=== PATIENT | male | born 2005 | race Caucasian/White ===

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

== ENCOUNTER 2024-04-06 18:42 | Emergency (ER) | payer SELFPAY ==
[2024-04-06 18:43] VITALS: BP 119/48; PULSE 107; RESP 16; TEMP 36.9; O2SAT 98
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
[2024-04-06 19:53] LABS: Absolute Neutrophil Count 7.8 X10^3/uL (2.0-7.7); Basophil# 0.06 X10^3/uL; Basophil% 0.5 % (0-1); Eosinophil# 0.02 X10^3/uL; Eosinophils% 0.2 % (0-5); Hematocrit 45.8 % (40-54); Lymphocyte % 20.9 % (19-41); Mean Corp Hgb Conc 32.8 g/dL (32-36); Mean Corpuscular Hgb 30.7 pg (27.0-32.0); Mean Corpuscular Volume 93.7 fL (80-94); Mean Platelet Vol. 10.8 fl (6.2-12.0); Monocyte% 6.4 % (0-10); NRBC Flagged by Analyzer 0 % (0-5); Neutrophil # 7.83 X10^3/uL (2.7-7.7); Neutrophil % 71.3 % (47-70); Platelet Count 268 K/mm3 (150-450); RBC Distribution Width CV 12.4 % (11.6-14.6); RBC Distribution Width SD 42.6 fl (35.1-43.9); Red Blood Count 4.89 M/mm3 (4.6-6.2)
--- NOTE | 2024-04-06 19:58 | ED.RN ---
called pharmacy to inquire about yunier
[2024-04-06 20:15] LABS: Anion Gap 13 (5-15); BUN 10 mg/dL (7-18); BUN/Creat Ratio 10.8 RATIO (10-20); Calcium,Total 9.4 mg/dL (8.5-10.1); Chloride 104 mmol/L (98-107); Creatinine, Serum 0.92 mg/dL (0.70-1.30); EST Glomerular Filtration Rate 111 mL/min (>60); Est Glom Filt Rate - Afr Amer 134 mL/min (>60); Glucose 115 mg/dL (74-106); Potassium 3.9 mmol/L (3.5-5.1); Sodium Level 140 mmol/L (136-145)
[2024-04-06 20:17] LABS: Valproic Acid (Depakene) Level 110 ug/mL (50-100)
[2024-04-06] MEDS: Divalproex Sodium 250 MG Tablet 500 MG PO (20:17)
[2024-04-06 20:42] VITALS: BP 109/61; PULSE 74; RESP 18; O2SAT 98
--- NOTE | 2024-04-06 20:53 | EDS_ITS ---
HPI History of Present Illness Chief Complaint: Seizure Informant: patient, parent and EMS Narrative Narrative: 18-year-old male with a history of epilepsy presenting to the emergency room with 2 seizures today. Patient notes that he is epileptic and takes valproic acid. He sees neurology through [facility] and sees them in [place]. He admits that he often misses doses of his Depakote. Denies any recent illnesses. Reportedly had a seizure today but does not remember how he would have injured himself but he notes contusion to his tongue and left periorbital contusion. He notes associated headache. Mom found him into her to family to watch him while she finished work. He took a nap. He notes that he felt back to normal shortly after waking up from nap had a another generalized seizure. [facility] Medical History Seizure Home Medications ?Medication ?Instructions ?Recorded ?Last Taken ?Type amoxicillin 875 mg tablet 875 mg PO BID #20 tabs 10/01/15 Unknown Rx divalproex 500 mg tablet,delayed 500 mg PO BID 12/30/21 Unknown History release divalproex 125 mg tablet,delayed 500 mg PO BID 01/10/22 Unknown History release (Depakote) Allergy/AdvReac Type Severity Reaction Status Date / Time No Known Allergies Allergy Verified 04/06/24 18:53 Social History Smoking Status: Current some day smoker tobacco type: cigarettes, e-cigarettes and smokeless tobacco ROS ROS ED Constitutional Constitutional ED: Denies chills, fever(s) or weight loss Eyes Eyes: Denies change in vision or diplopia ENT ENT ED: Denies ear pain, rhinorrhea or sore throat Cardiovascular Cardiovascular: Denies chest pain, orthopnea, palpitations or racing heartbeat Respiratory/Chest Respiratory/Chest: Denies cough, dyspnea or orthopnea Gastrointestinal Gastrointestinal: Denies abdominal pain, diarrhea, nausea or vomiting Genitourinary Genitourinary ED: Denies dysuria, hematuria or urinary frequency Musculoskeletal Musculoskeletal: Reports other Details: Left periorbital contusion ; Denies arthralgias or myalgias Integumentary Denies abscess or rash Neurologic Neurologic: Reports headache(s) and other Details: Seizure ; Denies paresthesias or weakness Psychiatric Psychiatric: Denies anxiety, depression, suicidal ideation or suicidal thoughts Endocrine Endocrinology: Denies polydipsia, polyphagia or polyuria Allergic/Immunologic Allergic/Immunologic ED: Denies mouth swelling, tongue swelling or urticaria EXAM Physical Exam Const Vital Signs: 04/06/24 18:43 04/06/24 20:42 04/06/24 20:54 Temperature 98.4 F 97.9 F Temperature Source Oral Pulse Rate 107 H 74 74 Respiratory Rate 16 18 18 Blood Pressure 119/48 L 109/61 109/61 Blood Pressure Mean 71 77 77 Pulse Ox 98 98 98 Oxygen Delivery Method Room Air Room Air Positive well nourished and well developed General Appearance ED: well developed HEENT Reports normocephalic and moist mucous membranes HEENT Narrative: There is left lateral periorbital contusion no bony crepitance or step-offs. Eyes PERRL and EOMs intact bilaterally Neck no lymphadenopathy, supple and no JVD Resp normal respiratory effort and clear to auscultation bilaterally Cardio regular rate, regular rhythm and no murmurs GI normal to inspection, nondistended, normoactive bowel sounds and non-tender Palpation: soft Back/Spine no CVA tenderness and normal ROM Extremity normal to inspection General Extremety ED: Negative for edema General Extremity: Negative for edema Neuro oriented x3, CN's II-XII intact bilaterally and no sensory deficits noted Sensorium / Orientation: alert Sensory Exam: No sensory level loss detected Motor Exam: strength 5/5 throughout Psych mental status grossly normal Mood & Affect: Negative for depressed or tearful Skin no rashes or lesions noted and no wounds MDM MDM MDM Narrative Medical decision making narrative: Differential diagnosis includes medical noncompliance epileptic seizure status epilepticus electrolyte abnormalities intracranial hemorrhage skull fracture Patient's white count is 11 hemoglobin of 15 platelet count 268. BMP shows a glucose of 115. Valproic acid is 110. CT of the brain demonstrates no acute findings. Patient is at neurologic baseline. At this point he will be discharged home. Would recommend that he discuss today's events with his n eurologist tomorrow. If he would have another seizure within the next 24 hours he needs to return to emergency. History & Record Review Discussion w/independent historian: EMS personnel, Patient and Family Lab Data Attestation: I reviewed the patient's lab results. Labs: Laboratory Results - last 24 hr 04/06/24 18:45 WBC 11.0 RBC 4.89 Hgb 15.0 Hct 45.8 MCV 93.7 MCH 30.7 MCHC 32.8 RDW Std Deviation 42.6 RDW Coeff of [place] 12.4 Plt Count 268 MPV 10.8 Immature Gran % (Auto) 0.700 Neut % (Auto) 71.3 H Lymph % (Auto) 20.9 [place] % (Auto) 6.4 Eos % (Auto) 0.2 Baso % (Auto) 0.5 Absolute Neuts (auto) 7.8 H Absolute Lymphs (auto) 2.30 Nucleated RBC % 0 Sodium 140 Potassium 3.9 Chloride 104 Carbon Dioxide 23.0 Anion Gap 13 BUN 10 Creatinine 0.92 Est GFR (MDRD) Af Amer 134 Est GFR (MDRD) Non-Af 111 BUN/Creatinine Ratio 10.8 Glucose 115 H Calcium 9.4 Valproic Acid 110 H Radiography Diagnostic Testing: Clinical Impression(s) from Imaging Studies Brain CT 04/06/24 19:38 IMPRESSION: Normal unenhanced CT scan of the brain. Electronically Signed: Jj Hernandez MD at 20:21 EDT Reading Location ID and State: [address] [place] [address] Tel , Service support , Discharge Plan Triage Chief Complaint: Seizure ED Provider: Tate Kauffman Dx/Rx/DC Orders Clinical Impression: Epileptic seizure, Contusion of face Instructions: ED Seizure, Recurrent (Adult) Prescriptions: No Action amoxicillin 875 MG tablet 875 mg PO BID Qty: 20 0RF divalproex 500 mg tablet,delayed release (DR/EC) 500 mg PO BID divalproex [Depakote] 125 mg tablet,delayed release (DR/EC) 500 mg PO BID Patient Comments: twice a day Primary Care Provider: Bassam Simpson Referrals: Bassam Simpson MD [Primary Care Provider] - Activity Restrictions/Additional Instructions: Your valproic acid level today was 110. I would recommend calling and discussing today's visit and your seizures with your neurologist. Print Language: Syriac Disposition Disposition: Home, Self Care
[2024-04-06 20:54] VITALS: BP 109/61; PULSE 74; RESP 18; TEMP 36.6; O2SAT 98
== END 2024-04-06 21:03 | disposition home or self-care (01) ==
PROVIDERS: Emergency Provider Emergency Medicine; PCP Psychiatry & Neurology Neurology; Visit Provider Emergency Medicine
DX: G40.909 Epilepsy, unspecified, not intractable, without status epilepticus (principal); S05.12XA Contusion of eyeball and orbital tissues, left eye, initial encounter; S00.532A Contusion of oral cavity, initial encounter; T42.6X6A Underdosing of other antiepileptic and sedative-hypnotic drugs, initial encounter; Z91.148 Patient's other noncompliance with medication regimen for other reason; F17.210 Nicotine dependence, cigarettes, uncomplicated; F17.290 Nicotine dependence, other tobacco product, uncomplicated; F17.220 Nicotine dependence, chewing tobacco, uncomplicated; Z79.899 Other long term (current) drug therapy
CPT/HCPCS: 70450; 80048; 80164; 85025; 99284